=== PATIENT | female | born 1990 | race Caucasian/White ===

== ENCOUNTER 2020-08-26 06:34 | Day surgery (SDC) | payer BC ==
--- NOTE | 2020-08-19 10:10 | RAD REPORT ---
EXAM DESCRIPTION: RAD - Chest Pa And Lat (2 Views) - 08/19/2020 10:03 am CLINICAL HISTORY: pre op, pending knee surgery COMPARISON: None TECHNIQUE: Frontal and lateral views of the chest were obtained. FINDINGS: The lungs are clear. Heart size is normal and central vasculature is within normal limit s. No pleural effusion or pneumothorax seen. No acute bony finding noted. No aortic abnormality. IMPRESSION: No acute cardiopulmonary process.
[2020-08-19 11:16] LABS: Absolute Lymphocytes (CBC) 1.4 K/uL (0.7-4.9); Basophils % 0.6 % (0-1.3); Hematocrit 40.1 % (36.0-45.0); Lymphocytes % 21.4 % (15.3-44.8); MPV 9.8 fL (7.6-11.3); RBC Red Blood Cell Count 4.23 M/uL (3.86-4.86)
[2020-08-19 11:26] LABS: Protime INR 0.88
[2020-08-19 11:42] LABS: Potassium 4.4 mmol/L (3.5-5.1)
--- NOTE | 2020-08-20 06:07 | EKG ---
Test Date: 2020-08-19 Test Time: 09:31:50 Wildlife Enforcement Major: ANNABELLE MEASUREMENT RESULTS: Intervals: Rate: 65 ID: [id number] QRSD: 84 QT: 374 QTc: 388 [place]: P: 87 ID: [id number] QRS: 97 T: 91 INTERPRETIVE STATEMENTS: Normal sinus rhythm with sinus arrhythmia Right atrial enlargement Rightward axis Pulmonary disease pattern Abnormal ECG No previous ECG available for comparison Electronically Signed On 08-20-20 06:03:14 ELECTRICAL MACHINE BUILDER by Kamron Burks
--- OUTSIDE RECORDS SUMMARY | 2020-08-26 06:37 | XMS REPORT ---
:[address] [facility] Address [address] [place] [address] Care Team Providers Name Role Phone Yon Jameson Unavailable [phone] PROBLEMS No Information ALLERGIES No Known Allergies ENCOUNTERS from 1990 to 2020-07-21 Encounter Location Date Provider Diagnosis [facility] [address] Jul, [place] [address] IMMUNIZATIONS No Information SOCIAL HISTORY Tobacco Use: Social History Observation Description Date Details (start date - stop date) Never Smoker Sex Assigned At : Social History Observation Description Sex Assigned At Unknown Alcohol Screen Question Answer Notes Did you have a drink containing alcohol in Yes the past year? Points 2 Interpretation Negative How often did you have 6 or more drinks on Never (0 points) one occasion in the past year? How many drinks did you have on a typical 1 or 2 (0 points) day when you were drinking in the past year? How often did you have a drink containing Two to four times a month (2 points) alcohol in the past year? Tobacco Use/Smoking Question Answer Notes Are you a never smoker Additional Findings: Tobacco Non-User Current non-smoker REASON FOR REFERRAL No Information VITAL SIGNS No information MEDICATIONS Medication SIG (Take, Route, Frequency, Duration) Start Date En d Date Status Erin Active PROCEDURES No Information RESULTS No Results REASON FOR VISIT mri results Goals Section No Information Health Concerns No Information MEDICAL EQUIPMENT No Information MENTAL STATUS No Information FUNCTIONAL STATUS No Information ASSESSMENTS No Information PLAN OF TREATMENT Next Appt Details Provider Name:Yon Jameson 2020-07-27 0 9:00:00 AM, [address], [place], [address], Insurance Providers Payer Name Payer Payer Insured Name Patient Coverage Covera End Address Phone Relationship to Start Date Matt e Insured [employer] [phone] Kandis Estevez self and Blue [id number] [address] [place] [phone]
--- OUTSIDE RECORDS SUMMARY | 2020-08-26 06:37 | XMS REPORT ---
:1990 Author Organization [facility] Address [address] , [address] [place] [address] Care Team Providers Name Role Phone Yon Jameson Unavailable [phone] PROBLEMS No Information ALLERGIES No Known Allergies ENCOUNTERS from 1990 to 2020-07-20 Encounter Location Date Provider Diagnosis [facility] [address] Jul, Yon Jameson Pain , joint, knee, [facility] 1 [place] left M2 5.562 ; [place] [address] left knee, curr ent, unspecified tea r type, initial encounter S83.2 42A and Rupture of anterior crucia te ligament of lef t knee, initial encounter S83.5 12A IMMUNIZATIONS No Information SOCIAL HISTORY Tobacco Use: [...] REASON FOR REFERRAL No Information VITAL SIGNS Height 68.5 in Jul, Weight 129.6 lbs Jul, Temperature 97.7 degrees Fahrenheit Jul, BMI 19.42 kg/m2 Jul, Blood pressure systolic 122 mm Hg Jul, Blood pressure diastolic 80 mm Hg Jul, MEDICATIONS Medication SIG (Take, Route, Frequency, Duration) Start Date En d Date Status Erin Active PROCEDURES No Information RESULTS No Results REASON FOR VISIT NEW PT: LEFT KNEE PAIN Goals Section No Information Health Concerns No Information MEDICAL EQUIPMENT No Information MENTAL STATUS No Information FUNCTIONAL STATUS No Information ASSESSMENTS Encounter Date Diagnosis Notes Jul, Pain, joint, knee, left (ICD-10 - M25.56 2) Jul, Rupture of anterior cruciate ligament of left knee, initial encounter (ICD-10 - S83.512A) Jul, Tear of medial meniscus of left knee, cu rrent, unspecified tear type, initial encounter (ICD-10 - S83.24 2A) PLAN OF TREATMENT Treatment Notes Assessment Notes Clinical Notes Tear of medial meniscus of left -proceed with MRI of the lef t knee knee, current, unspecified tear to further evaluate the medi al type, initial encounter meniscus and ACL-discussed use of crutches if she continues to have pain with ambulation-f/u after completion of MRI to discuss results and definitive treatment Treatment Notes Test Name Order Date X-RAY EXAM KNEE 1 OR 2 VIEWS ([id number]) 2020-07-20 MRI Knee Left Wo Cont 2020-07-20 X-RAY EXAM KNEE STANDING VIEW ([id number]) 2020-07-20 Next Appt Details f/u after MRI of the left knee Reason: Insurance Providers Payer Name Payer Payer Insured Name Patient Coverage Covera End Address Phone Relationship to Start Date Matt e Insured [employer] [phone] Kandis Estevez self and Blue [id number] [address] [facility] [phone]
--- OUTSIDE RECORDS SUMMARY | 2020-08-26 06:37 | XMS REPORT ---
:1990 Author Organization [facility] Address 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 580168950125605 left knee ALLERGIES No Known Allergies ENCOUNTERS from 1989 to 2020-08-20 Encounter Location Date Provider Diagnosis [facility] [address] [facility] [address] Aug, [place] [address] IMMUNIZATIONS No Information SOCIAL HISTORY Tobacco Use: [...] information MEDICATIONS Medication SIG (Take, Route, Frequency, Notes Start Date End Matt e Status Duration) Meloxicam 7.5 MG 1 tablet Orally Once a day Jul, 2 Aug, Active for 30 day(s) Erin Active PROCEDURES No Information RESULTS No Results REASON FOR VISIT PCP clearance MEDICAL (GENERAL) HISTORY Type Description Date Surgical History No know Surgical history Goals Section No Information Health Concerns No Information MEDICAL EQUIPMENT No Information MENTAL STATUS No Information FUNCTIONAL STATUS No Information ASSESSMENTS No Information PLAN OF TREATMENT Next Appt Details Provider Name:Lenore Meza, 2020-08-21 0 9:40:00 AM, [address], [address], [place], [address], Provider Name:Yon Jameson, 2020-09-03 0 2:30:00 PM, [address], [address], [place], [address], Insurance Providers Payer Name Payer Payer Insured Name Patient Coverage Covera End Address Phone Relationship to Start Date Matt e Insured [employer] [phone] Kandis Estevez self and Blue [id number] [address] [place] [phone]
--- OUTSIDE RECORDS SUMMARY | 2020-08-26 06:37 | XMS REPORT ---
:1990 Author Organization [facility] Address [address] , [facility] 1 [place] [address] Care Team Providers Name Role Phone Yon Jameson Unavailable [phone] PROBLEMS No Information ALLERGIES No Known Allergies ENCOUNTERS from 1989 to 2020-07-30 Encounter Location Date Provider Diagnosis [facility] [address] Jul, Yon Jameson Pain , joint, knee, [facility] 1 [place], left M25.562 ; [facility] [address] Contusion of l eft knee, initial encounter S80.0 2XA and Knee effusi on, left M25.462 IMMUNIZATIONS No Information SOCIAL HISTORY Tobacco Use: [...] VITAL SIGNS Height 68.5 in Jul, Weight 128 lbs Jul, Temperature 97.5 degrees Fahrenheit Jul, BMI 19.18 kg/m2 Jul, Blood pressure systolic 116 mm Hg Jul, Blood pressure diastolic 90 mm Hg Jul, MEDICATIONS Medication SIG (Take, Route, Frequency, Start Date End Date Status Duration) Meloxicam 7.5 MG 1 tablet Orally Once a day for 30 Jul, Aug, Active day(s) Erin Active PROCEDURES No Information RESULTS No Results REASON FOR VISIT F/U LEFT KNEE PAIN: MRI RESULTS MEDICAL (GENERAL) HISTORY Type Description Date Surgical History No know Surgical history Goals Section No Information Health Concerns No Information MEDICAL EQUIPMENT No Information MENTAL STATUS No Information FUNCTIONAL STATUS No Information ASSESSMENTS Encounter Date Diagnosis Notes Jul, Pain, joint, knee, left (ICD-10 - M25.56 2) Jul, Knee effusion, left (ICD-10 - M25.462) Jul, Contusion of left knee, initial encounte r (ICD-10 - S80.02XA) PLAN OF TREATMENT Medication Medication Name Sig Start Date Stop Date Meloxicam 7.5 MG 1 tablet Orally Once a day for 30 day(s) JulAug, Treatment Notes Assessment Notes Clinical Notes Contusion of left knee, initial -proceed with conservative t reatment encounter measures including aggressive formal physical therapy and home exercise program-she was also given a prescription for Mobic to aid with inflammation and swelling-f/u in 3 weeks for reevaluation Knee effusion, left -proceed with conservative treatment measures including aggressive formal physical therapy and home exercise program-she was also given a prescription for Mobic to aid with inflammation and swelling-f/u in 3 weeks for reevaluation Next Appt Details 3 Weeks Reason: Provider Name:Yon Jameson 2020-08-17 0 9:00:00 AM, [address] [facility] , [address], [place], [address], Insurance Providers Payer Name Payer Payer Insured Name Patient Coverage Covera ge End Address Phone Relationship to Start Date Matt e Insured [employer] [phone] Kandis Estevez self and Blue [id number] [facility] [phone]
--- OUTSIDE RECORDS SUMMARY | 2020-08-26 06:37 | XMS REPORT ---
:1990 Author Organization [facility] Address [address] [facility] [address] 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 Points 3 Interpretation Positive How often did you have a drink containing Two to three times per week (3 alcohol in the past year? points) Tobacco Use/Smoking Question Answer Notes Are you a never smoker REASON FOR REFERRAL No Information VITAL SIGNS No information MEDICATIONS Medication SIG (Take, Route, Frequency, Duration) Notes Start Da te End Date Status Erin Active PROCEDURES No Information RESULTS No Results REASON FOR VISIT abnormal EKG MEDICAL (GENERAL) HISTORY Type Description Date Medical History PAP smear- 07/24/2020 Medical History Tdap vaccine- 12/2019 Medical History Flu vacccine- 07/06/2020 Medical History migraines Medical History seasonal allergies Surgical History 2019 Surgical History wisdom teeth removed 2006 Goals Section No Information Health Concerns No Information MEDICAL EQUIPMENT No Information MENTAL STATUS No Information FUNCTIONAL STATUS No Information ASSESSMENTS No Information PLAN OF TREATMENT Next Appt Details Provider Name:Yon Jameson, 2020-09-03 0 2:30:00 PM, [address], [address], [place], [address], Insurance Providers Payer Name Payer Payer Insured Name Patient Coverage Covera End Address Phone Relationship to Start Date Matt e Insured [employer] [phone] Kandis Estevez self 2019 and Blue [id number] [address] [place] [phone]
--- OUTSIDE RECORDS SUMMARY | 2020-08-26 06:37 | XMS REPORT ---
:1990 Author Organization [facility] Address 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 [address] [place] [address] Aug, [place] [address] IMMUNIZATIONS No Information SOCIAL HISTORY Tobacco Use: [...] Information RESULTS No Results REASON FOR VISIT CARDIO INFO FOR SX MEDICAL (GENERAL) HISTORY Type Description Date Medical History PAP smear- 07/24/2020 Medical History Tdap vaccine- 12/2019 Medical History Flu vacccine- 07/06/2020 Medical History migraines Medical History seasonal allergies Surgical History PRK 2020 Surgical History wisdom teeth removed 2007 Goals Section No Information Health Concerns No Information MEDICAL EQUIPMENT No Information MENTAL STATUS No Information FUNCTIONAL STATUS No Information ASSESSMENTS No Information PLAN OF TREATMENT Next Appt Details Provider Name:Yon Jameson, 2020-09-03 0 2:30:00 PM, [address] [facility] [address], [place], [address], Insurance Providers Payer Name Payer Payer Insured Name Patient Coverage Covera End Address Phone Relationship to Start Date Matt e Insured [employer] [phone] Kandis Estevez self 2020 and Blue [id number] [address] [place] [phone]
--- OUTSIDE RECORDS SUMMARY | 2020-08-26 06:37 | XMS REPORT | Clinical Summary ---
:1990 Author Organization [facility] Address [address] [place] [address] Care Team Providers Name Role Phone Asked, No Pcp Primary Care Provider Unavailable Allergies No Known Active Allergies Medications Medication Sig Dispensed Refills Start Date End Date Status Erin 3-0.03 mg per Take 1 tablet by 0 08/15/2020 Active tablet mouth daily. Active Problems Problem Noted Date Abnormal EKG 08/25/2020 Pre-op evaluation 08/24/2020 Encounters Date Type Specialty Care Team Description 08/24/2020 Office Visit Cardiology Trino Covarrubias MD Pre-op ev aluation (Primary Dx); Abnormal EKG 08/24/2020 Travel after 08/26/2019 Surgical History Surgery Date Site/Laterality Comments EYE SURGERY for PRK EXTRACTION, WISDOM TEETH, IMPACTED REMOVAL, SKIN TAG Family History Medical History Relation Name Comments No Known Problems Father No Known Problems Mother Relation Name Status Comments Father Alive Mother Alive Social History Tobacco Use Types Packs/Day Years Used Date Never Smoker Smokeless Tobacco: Never Used Alcohol Use Drinks/Week oz/Week Comments Yes Alcohol Habits Answer Date Recorded How often do you have a drink containing alcohol? 2-4 times a month 08/24/2020 How many drinks containing alcohol do you have on a 1 or 2 08/24/2020 typical day when you are drinking? How often do you have six or more drinks on one Not asked occasion? Sex Assigned at Date Recorded Not on file Job Start Date Occupation Industry Not on file Not on file Not on file COVID-19 Exposure Response Date Recorded In the last month, have you been in contact with No / Unsure 08/24/2020 10:10 AM TASTE TESTER someone who was confirmed or suspected to have Coronavirus / COVID-19? Last Filed Vital Signs Vital Sign Reading Time Taken Comments Blood Pressure 111/73 08/24/2020 11:25 AM TASTE TESTER Pulse 88 08/24/2020 11:25 AM TASTE TESTER Temperature - - Respiratory Rate - - Oxygen Saturation - - Inhaled Oxygen Concentration - - Weight 59.5 kg (131 lb 2 oz) 08/24/2020 11:25 AM TASTE TESTER Height - - Body Mass Index - - Plan of Treatment Health Maintenance Due Date Last Done Comments CERVICAL CANCER SCREENING 2010 INFLUENZA VACCINE 05/02/2020 Procedures Procedure Name Priority Date/Time Associated Diagnosis Comme nts TTE COMPLETE, W Routine 08/24/2020 3:16 PM Pre-op evaluation Results for this CONTRAST, W DOPPLER TASTE TESTER procedur e are in ([id number]) the results section. ECG 12-LEAD Routine 08/24/2020 11:22 AM Pre-op evaluation Res ults for this TASTE TESTER procedure are i n the results section. after 08/26/2019 Results Transthoracic Echocardiogram Complete, (w Contrast, Strain and 3D if needed) (08/24/2020 3:16 PM TASTE TESTER) Specimen Narrative Performed At [facility] Echo cardiography Report Pat.Name: DESTINY ESTEVEZ Pat.ID: [id number] .Date: 08/24/2020 Refer.MD: YING MCGILL NP Exam Time: 3:03:00 PM Study Type:R outine Echo Height: 68in Weight: 130.73lb BSA: 1.71 m2 Ag e: 1990,30Y Sex: FEMALE BP: 125/77 HR: 81 bpm Sonogr phr: HILARIO Sumner Pat. Stat.:Outpatient Room: S19 Study Status:Final Echo Event ID:[id number] Order ID: [id number] Reason for Study:preop eval, enlarged RA on ekg Dx,Pre-op evaluation [Z01.818 (ICD-10-CM )] Procedures: 2D Echo, Colorflow Doppler SUMMARY: LV EF is normal.Estimated EF is 60-64%. RV systolic function is normal. Normal diastolic function and LV filling pressures. No significant valvular abnormalities. Interatrial septum: No obvious evidence of shunt on color Doppler + normal sized RA/RV; Unable to quantitate Qp/Qs. FINDINGS: LV: LV size is normal. LV EF is normal. Overall wall motion is normal. Estimated EF is 6 0-64%. RV: RV size is normal. RV systo lic function is normal. LA: LA size is normal. RA: RA size is normal. AO: Aortic root diameter is nor mal. TAYLOR: No pericardial effusion. SVn: Normal collapse of IVC during inspiration is consistent with normal RA pressure. AV: No structural AV abnormalit ies noted. MV: No structural MV abnormalit ies noted. A trace of mitral regurgitation. PV: No structural PV abnormalit ies noted. TV: No structural TV abnormalit ies noted. A trace of tricuspid regurgitation Melvin: Normal diastolic function an d LV filling pressures. Other: Insufficient TR jet to estim ate PA systolic pressure. MEASUREMENTS: 2D Parasternal Long [place] Ao An 1.9 cm LVPWd 0.72 cm Ao Rtd 2.8 cm Index 1.6 cm/m2 LA Ds 2.6 cm IVSd 0.68 cm RWT 0.4 LVIDd 3.6 cm Index 2.1 cm/m2 LV Mass 67 g (87-12 9) LVIDs 2.1 cm LVM In dex 39 g/m LV%fs 42 % LA Sng Plane LA Area 15 cm (8.8-23.4) LA Vol 38 ml Index 22 ml/m2 LA LngAx 5 cm RA Sng Plane RA Vol 25 ml Index 15 ml/m2 RA LngAx 4.5 cm RA Area 11 cm (8.3-1 9.5) LVOT Stroke Vol & Cardiac Out LVOT 2 cm LVOT LVOT Area 3.1 cm DOPPLER LVOT Stroke Vol & Cardiac Out LVOT TVI 24 cm LVOT CI 3.9 l/m/m LVOT SV 75 ml HR 89 bpm LVOT CO 6.7 l/min LVOT SVi 44 ml/m Signed 08/24/2020 03:08 PM Marie oKch MD Procedure Note Interface, Radiology Results In - 2019 3:09 PM TASTE TESTER [facility] Echocardiography Report Pat.Name: DESTINY ESTEVEZ Pat.I D: [id number] St.Date: 08/24/2020 Refer .MD: YING MCGILL NP Exam Time: 3:03:00 PM Study Type:Routine Echo Height: 68in Weigh t: 130.73lb BSA: 1.71 m2 Age: 9 1990,30Y Sex: FEMALE BP: 125/77 HR: 81 bpm Sonog rphr: HILARIO Sumner Pat. Stat.:Outpatient Room: S19 Study Status:Final Echo Event ID:[id number] Order ID: [id number] Reason for Study:preop eval, enlarged RA on ekg Dx,Pre-op evaluation [Z01.818 (ICD-10-CM )] Procedures: 2D Echo, Colorflow Doppler SUMMARY: LV EF is normal.Estimated EF is 60-64%. RV systolic function is normal. Normal diastolic function and LV filling pressures. No significant valvular abnormalities. Interatrial septum: No obvious evidence of shunt on color Doppler + normal sized RA/RV; Unable to quantitate Qp/Qs. FINDINGS: LV: LV size is normal. LV EF is no rmal. Overall wall motion is normal. Estimated EF is 60-64% . RV: RV size is normal. RV systolic function is normal. LA: LA size is normal. RA: RA size is normal. AO: Aortic root diameter is normal . TAYLOR: No pericardial effusion. SVn: Normal collapse of IVC during inspiration is consistent with normal RA pressure. AV: No structural AV abnormalities noted. MV: No structural MV abnormalities noted. A trace of mitral regurgitation. PV: No structural PV abnormalities noted. TV: No structural TV abnormalities noted. A trace of tricuspid regurgitation Melvin: Normal diastolic function and LV filling pressures. Other: Insufficient TR jet to estimat e PA systolic pressure. MEASUREMENTS: 2D Parasternal Long [place] Ao An 1.9 cm LVPW d 0.72 cm Ao Rtd 2.8 cm Inde x 1.6 cm/m2 LA Ds 2.6 cm IVSd 0.68 cm RWT 0.4 LVIDd 3.6 cm Inde x 2.1 cm/m2 LV Mass 67 g (87-129) LVIDs 2.1 cm LVM Index 39 g/m LV%fs 42 % LA Sng Plane LA Area 15 cm (8.8-23.4) L A Vol 38 ml Index 22 ml/m2 LA LngAx 5 cm RA Sng Plane RA Vol 25 ml Inde x 15 ml/m2 RA LngAx 4.5 cm RA Area 11 cm (8.3-19.5) LVOT Stroke Vol & Cardiac Out LVOT 2 cm LVOT LVOT Area 3.1 cm DOPPLER LVOT Stroke Vol & Cardiac Out LVOT TVI 24 cm LVOT CI 3.9 l/m/m LVOT SV 75 ml HR 89 bpm LVOT CO 6.7 l/min LVOT SVi 44 ml/m Signed 08/24/2020 03:08 PM Marie Koch MD Performing Organization Address City/State/ZIP Code Phon e Number [facility] [address] [place] [address] ECG 12 lead (08/24/2020 11:22 AM TASTE TESTER) Pathologist Sig nature Ventricular rate 89 [facility] Atrial rate 89 [facility] LA interval 130 [facility] QRSD interval 92 [facility] QT interval 354 [facility] QTC interval 430 [facility] P axis 1 86 [facility] QRS axis 1 101 [facility] T wave axis 76 [facility] EKG impression Normal sinus [facility] rhythm-Right atrial enlargement-Rightward axis-Pulmonary disease pattern-Abnormal ECG-No previous ECGs available-Electronicall y Signed By Alexey MENDOZA, [facility] ([id number]) on 08/24/2020 11:40:50 AM Specimen Narrative Performed At This result has an attachment that is no t available. Performing Organization Address City/[facility]/ZIP Code Phon e Number [facility] M[facility] [address] [place] [address] after 08/26/2019 Advance Directives For more information, please contact: [phone] Type Date Recorded Patient Watch Assembly Instructor Explanati on Advance Directives, Living Will and Medical Power of Powerhouse Engineer
--- OUTSIDE RECORDS SUMMARY | 2020-08-26 06:37 | XMS REPORT ---
:1990 Author Organization [facility] Address 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 Aug, Lenore Meza Con tracture of left Family Medicine [address] [facility] [address] ; [place] [address] Encounter for other preprocedural examination Z01 .818 ; Abnormal EKG R9 4.31 ; Migraine G43.90 9 and Seasonal allerg ic rhinitis J30.2 IMMUNIZATIONS No Information SOCIAL HISTORY Tobacco Use: [...] No Information VITAL SIGNS Height 68.5 in Aug, Weight 131.4 lbs Aug, Temperature 98.1 degrees Fahrenheit Aug, BMI 19.69 kg/m2 Aug, Oximetry 100 % Aug, Respiratory Rate 18 /min Aug, Blood pressure systolic 121 mm Hg Aug, Blood pressure diastolic 89 mm Hg Aug, MEDICATIONS Medication SIG (Take, Route, Frequency, Duration) Notes Start Da te End Date Status Erin Active PROCEDURES No Information RESULTS No Results REASON FOR VISIT 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 In process. 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 discussed with patient who agrees and understands the importance of making sure she is cardiac stable for surgery. sent out an urgent cardio consult. gave pt referral number center to call. our staff is also calling [facility] to see who will take her Aug, Migraine (ICD-10 - stable on no meds G43.909) Aug, Seasonal allergic controlled on no rhinitis (ICD-10 - meds J30.2) Aug, Other -- Medication(s) reviewed and updated. Dietary and lifestyle modifications discussed with aptient regarding low fat, low carb, low sodium/salt diet, excerise and weight managemen t. -- Treatment options, risks and benefits, side effects reviewed in detail. patient accepts risk. -- Advised on signs/symptoms to monitor and when to call clinic and/or visit the nearest ED. Patient verbalized understanding and agreed with plan of care. -- Greater than 30 mins was spent with the patient during this encounter, of which over 50% of the time was spent counseling and coordinating care including but not limited to discussion of test results, diagnostic or treatment recommendations, prognosis, risks and benefits of management options, instructions, education, compliance and or risk reduction. -- Take med(s) as directed. All risks, benefits and side effects were discussed. All questions and concerns were addressed. PLAN OF TREATMENT Treatment Notes Assessment Notes Clinical Notes Contracture of left knee for left knee surgery on 08/26/2020f/u orthopedicshx of failed conservative thearpy Encounter for other preprocedural preop workup completed on examination 08/17/2020 including CXR, EKG and lab work (CBC, CMP and coags)all normal except for EKGreferral to cardio sent, patient will be medically cleared once cleared and optimized by cardiosent telephone encounter to Dr Jameson informing him of our plans Abnormal EKG based on EKG and PE findings (irregular heart beat on exam), patient would benefit from further cardiac workup. discussed with patient who agrees and understands the importance of making sure she is cardiac stable for surgery.sent out an urgent cardio consult. gave pt referral number center to call. our staff is also calling [facility] to see who will take her Migraine stable on no meds Seasonal allergic rhinitis controlled on no meds Next Appt Details Provider Name:Yon Trino, 2020-09-03 0 2:30:00 PM, [address] [facility] , [address], [place], [address], Insurance Providers Payer Name Payer Payer Insured Name Patient Coverage Covera ge End Address Phone Relationship to Start Date Matt e Insured [employer] [phone] Kandis Estevez self 2019 and Dariel [id number] [facility] [address]
--- OUTSIDE RECORDS SUMMARY | 2020-08-26 06:37 | XMS REPORT ---
:1990 Author Organization [facility] Address [address] [place] [address] Care Team Providers Name Role Phone Yon Jameson Unavailable [phone] PROBLEMS No Information ALLERGIES No Known Allergies ENCOUNTERS from 1989 to 2020-07-28 Encounter Location Date Provider Diagnosis [facility] [address] [place] [address] Jul[facility] [place] [address] IMMUNIZATIONS No Information SOCIAL HISTORY Tobacco Use: [...] information MEDICATIONS Medication SIG (Take, Route, Frequency, Start Date End Date Status Duration) Meloxicam 7.5 MG 1 tablet Orally Once a day for 30 Jul, Aug, Active day(s) Erin Active PROCEDURES No Information RESULTS No Results REASON FOR VISIT p/t order MEDICAL (GENERAL) HISTORY Type Description Date Surgical History No know Surgical history Goals Section No Information Health Concerns No Information MEDICAL EQUIPMENT No Information MENTAL STATUS No Information FUNCTIONAL STATUS No Information ASSESSMENTS No Information PLAN OF TREATMENT Medication Medication Name Sig Start Date Stop Date Meloxicam 7.5 MG 1 tablet Orally Once a day for 30 day(s) JulAug, Next Appt Details Provider Name:Yon Jameson, 2020-08-17 0 9:00:00 AM, [address], [place], [address], Insurance Providers Payer Name Payer Payer Insured Name Patient Coverage Covera End Address Phone Relationship to Start Date Matt e Insured [employer] [phone] Kandis Estevez self and Blue [id number] [facility] [address]
--- OUTSIDE RECORDS SUMMARY | 2020-08-26 06:37 | XMS REPORT | Continuity of Care Document ---
:1990 Author Organization [facility] t Address [address] [place] [address] Care Team Providers Name Role Phone Asked, Pcp Primary Care Physician Unavailable Sabas MENDOZA Attending Clinician Lab, Fam Pob I Attending Clinician Unavailable Payers Payer Name Policy Type Policy Effective Date Expiration Date Sour ce Number BCBSBCBS CHOICE [id number] 2020 [facility] PPO/FEDERAL 00:00:00 [employer] EMPL [id number] 2020-Presen tPPO Problems Condition Condition Condition Status Onset Resolution Last Treating Co mments Source Name Details Category Date Date Treatment Clinician Date Abnormal Abnormal Disease Active 2019-10 [place] [facility] EKG EKG 10-25 [facility] 00:00: st 00 Pre-op Pre-op Disease Active 2019-10 [facility] evaluation evaluation 10-24 Pa thodi 00:00: st 00 Allergies, Adverse Reactions, Alerts This patient has no known allergies or adverse reactions. Family History Family Member Diagnosis Comments Start Date Stop Date Source Natural father No Known Problems Abdelrahman Garcia Natural mother No Known Problems Abdelrahman Garcia Social History Social Habit Start Date Stop Date Quantity Comments Source History SDOH [facility] Alcohol Binge Sex Assigned At [facility] ethodist Exposure to Not sure [facility] SARS-CoV-2 (event) Tobacco use and 2020-08-24 2020-08-24 Never used [facility] ethodist exposure 00:00:00 00:00:00 Alcohol intake 2020-08-24 2020-08-24 Current drinker [place] [facility] [employer] 00:00:00 00:00:00 of alcohol (finding) History [facility] 2020-08-24 2020-08-24 3 [facility] Alcohol Frequency 00:00:00 00:00:00 History [facility] 2020-08-24 2020-08-24 1 [facility] Alcohol Std Drinks 00:00:00 00:00:00 Smoking Status Start Date Stop Date Source Never smoker [facility] t Medications Ordered Filled Start Stop Current Ordering Indication Dosage Frequency Signature Comments Components Source Medication Medication Date Date Medication? Clinician (SIG) Name Name Erin 2019-10 Yes 1{tbl} QD Take 1 Guzman 3-0.03 mg 1-14 tablet by Metho di per tablet 00:00: mouth st 00 daily. Vital Signs Vital Name Observation Time Observation Value Comments Source Systolic blood 2020-08-24 11:25:00 111 mm[Hg] [facility] n [facility] pressure Diastolic blood 2020-08-24 11:25:00 73 mm[Hg] Fif[place] on [facility] pressure Heart rate 2020-08-24 11:25:00 88 /min [facility] Body weight 2020-08-24 11:25:00 59.478 kg [facility] Procedures Procedure Date / Time Performed Performing Clinician Sourc e TTE COMPLETE, W 2020-08-24 15:16:10 OhDaphney drake [facility] CONTRAST, W DOPPLER ([id number]) ECG 12-LEAD 2020-08-24 11:22:21 Anival Covarrubias [facility] Plan of Care Planned Activity Planned Date Details Comments Source Future Scheduled 2020-05-02 INFLUENZA VACCINE [place] [facility] Test 00:00:00 [code = INFLUENZA VACCINE] Future Scheduled 2010 Screening for [facility] Test 00:00:00 malignant neoplasm of cervix (procedure) [code = 011320396] Encounters Start End Encounter Admission Attending Care Care Encounter Source Date/Time Date/Time Type Type Clinicians Facility Department ID 2020-08-24 2020-08-24 Outpatient [facility] [id number] [facility] 00:00:00 00:00:[address] 2020-08-24 2020-08-24 Outpatient SABAS, [facility] [id number] [facility] 00:00:00 00:00:00 ANIVAL [address] 2020-08-24 2020-08-24 Out[facility] [id number] [facility] 2020-08-21 2020-08-21 Out[facility] [id number] [facility] 2020-08-21 2020-08-21 Outpatient [facility] [id number] [facility] 2020-08-20 2020-08-20 Outpatient [facility] [id number] [facility] 2020-07-28 2020-07-28 Out[facility] [id number] [facility] 2020-07-27 2020-07-27 Outpatient [facility] [id number] [facility] 2020-07-16 2020-07-16 Outpatient [facility] [id number] [facility] 2020-07-13 2020-07-13 Out[facility] [id number] [facility] 2020-03-28 2020-03-28 Laboratory Lab, [facility] [id number] 14:58:55 15:18:55 Only Fam [facility] [id number] Mcdavid [id number] Professio [id number] nal [address] One Results Test Description Test Time Test Comments Results Result Comments Source ECG 12 lead 2020-08-24 11:40:56 Test Item Value Reference Range Interpretation Comme nts Ventricular rate (test code = 253) 89 Atrial rate (test code = 255) 89 SC interval (test code = 266) 130 QRSD interval (test code = 260) 92 QT interval (test code = 264) 354 QTC interval (test code = 265) 430 P axis 1 (test code = 267) 86 QRS axis 1 (test code = 268) 101 T wave axis (test code = 270) 76 EKG impression (test code = 273) Normal sinus rhythm-Right atrial enlargement-Rightward axis-Pulmonary disease pattern-Abnormal ECG-No previous ECGs available- Thomas Garcia
[2020-08-26 06:47] LABS: Specific Gravity 1.015 (1.005-1.030)
[2020-08-26] MEDS ORDERED: CEFAZOLIN/SWI 1gm 1 GM/10 ML SYR ONE (06:55)
[2020-08-26] MEDS ORDERED: propofoL 200 MG/20 ML VIAL IV ONE (07:40)
[2020-08-26] MEDS ORDERED: dexAMETHasone 10 MG/ML VIAL ONE ×2 (07:40→08:17)
[2020-08-26] MEDS ORDERED: LIDOCAINE 2% MPF 5 ML VIAL ONE ×2 (07:41→08:17)
[2020-08-26] MEDS ORDERED: KETOROLAC 30 MG/ML INJ ONE (07:41)
[2020-08-26] MEDS ORDERED: ONDANSETRON 4 MG/2 ML VIAL ONE (07:52)
[2020-08-26] MEDS: BUPIVACAINE 0.25% PF 30 ML VIAL ONE ×2 (08:05→08:19)
[2020-08-26] MEDS ORDERED: Ringers Lactate 1,000 ML IV ONE (08:15)
[2020-08-26] MEDS ORDERED: NS 0.9% VIAL 10 ML ONE (08:17)
[2020-08-26] MEDS ORDERED: FENTANYL CITR 100 MCG/2 ML ONE (08:17)
[2020-08-26] MEDS ORDERED: MIDAZOLAM HCL 2 MG/2 ML INJ ONE (08:17)
--- NOTE | 2020-08-26 08:40 | P.BOP ---
Preoperative diagnosis: left knee flexion contracture Postoperative diagnosis: same, left knee ACL sprain Primary procedure: left knee arthroscopic lysis of adhesions Secondary procedure: left knee manipulation under c web developer: NONE,NONE Estimated blood loss: 3 cc Specimen: none Findings: see dictation Anesthesia: General Complications: None Implants: none Fluids & blood products: per anesthesia record; TT: 18 mins @ 250 mmHg Transferred to: Recovery Room Condition: Good
[2020-08-26] MEDS ORDERED: MEPERIDINE HCL 25 MG/ML SYR ONE (08:57)
[2020-08-26 08:58] VITALS: O2SAT 100
[2020-08-26 09:02] VITALS: TEMP 97.3
--- NOTE | 2020-08-26 09:21 | RAD REPORT ---
EXAM DESCRIPTION: RAD - Knee Left 2 View - 08/26/2020 8:56 am CLINICAL HISTORY: Left knee manipulation under anesthesia FINDINGS: Two-view series obtained. A brace overlies the knee obscuring bony detail. No gross fracture or dislocation noted
[2020-08-26] MEDS ORDERED: HYDROCODONE/APAP 7.5/325 MG TAB ONE (09:41)
[2020-08-26 10:06] VITALS: BP 128/80
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
== END 2020-08-26 10:00 | disposition home or self-care (01) ==
LOC: OR 06:34
PROVIDERS: ATTEND Orthopaedic Surgery Sports Medicine
PROC: 0SNDXZZ Release Left Knee Joint, External Approach (ICD-10-PCS; 2020-08-26)
PROC: 0SND4ZZ Release Left Knee Joint, Percutaneous Endoscopic Approach (ICD-10-PCS; principal; 2020-08-26 07:30)
DX: M24.562 Contracture, left knee (principal); S80.02XD Contusion of left knee, subsequent encounter; M25.462 Effusion, left knee; Z20.828 Contact with and (suspected) exposure to other viral communicable diseases
CPT/HCPCS: 93005; 85025; 80048; 36415; 81025; 85610; 85730; 71046; 73560; 29884; 27570; U0002; J2704; J2250; J3010; J1100 ×2; J2175; J0690; J7120; J2405